=== PATIENT | male | born 1955 | race Caucasian/White ===

== ENCOUNTER 2017-11-26 19:55 | Emergency (ER) | payer OTHER ==
[~2017-11-26] VITALS: Ht 193 cm; Wt 108.6 kg
[~2017-11-26 19:55] MED LIST: ASPI325T PO; KRIL300C PO; PRAV20 PO; VITA10004 PO
[2017-11-26 20:16] VITALS: BP 176/96; PULSE 61; RESP 16; TEMP 99.1; O2SAT 97
[2017-11-26 20:55] VITALS: BP 176/96; PULSE 61; RESP 16; TEMP 99.1; O2SAT 97
[2017-11-26] MEDS ORDERED: ASPI-183 PO (21:09)
[2017-11-26] MEDS ORDERED: LISI40TA PO (21:09)
--- NOTE | 2017-11-26 21:09 | PD ---
HPI Chief Complaint: Musculoskeletal Complaint Time Seen by Provider: 20:56 Travel History International Travel<30 days: No Contact w/Intl Traveler<30days: No Traveled to known affect area: No History of Present Illness HPI Patient is a 62-year-old male presents emergency department with lower cervical neck pain or high thoracic pain in a bandlike distribution. Patient states he awoke this pain yesterday. Denies any weakness in upper or lower extremities incontinence, chest pain shortness of breath abdominal pain nausea or vomiting. He does have a secondary complaint of loss of the central vision of his right eye over the past week or so. Patient states finds it difficult to read but if he looks out of the peripheral of his vision he is able to correctly identify objects. He states he has an appointment with an eye doctor coming up soon but has not yet followed up. He states that he has a history of TIA in the past which was associated with a patent foramen ovale which was surgically closed. He states this was in 2013. Patient also is complaints of a right temporal headache which is been on and off for some time. He states symptoms are moderate, started yesterday morning, associated signs symptoms in context as above. Is accompanied by his who is concerned about possibility of a recurrent stroke or TIA. PFSH Past Medical History Hx Anticoagulant Therapy: Yes (ASA) Heart Rhythm Problems: No Cancer: No Cardiovascular Problems: Yes (HTN) High Cholesterol: Yes Chest Pain: No Congestive Heart Failure: No Cerebrovascular Accident: Yes (2012) Diminished Hearing: No Endocrine: No Genitourinary: No Hypertension: Yes Immune Disorder: No Inguinal Hernia: Yes Musculoskeletal: No Neurologic: Yes (TIA) Psychiatric: No Reproductive: No Respiratory: No Migraines: No Seizures: No Past Surgical History Abdominal Surgery: Yes (BILATERAL HERNIA REPAIR) Cardiac Surgery: No Ear Surgery: No Endocrine Surgery: No Eye Surgery: No Genitourinary Surgery: No Gynecologic Surgery: No Oral Surgery: No Thoracic Surgery: No Social History Alcohol Use: No Tobacco Use: No Substance Use: No Allergies-Medications (Allergen,Severity, Reaction): Coded Allergies: No Known Allergies (Unverified Adverse Reaction, Unknown, 11/26/17) Reported Meds & Prescriptions Reported Meds & Active Scripts Active Reported Lisinopril 40 Mg Tab 40 Mg PO DAILY Aspirin 325 Mg Tab 325 Mg PO DAILY Review of Systems Except as stated in HPI: all other systems reviewed are Neg Physical Exam Narrative GENERAL: Well-developed well-nourished no obvious distress peer SKIN: Focused skin assessment warm/dry. HEAD: Atraumatic. Normocephalic. EYES: Pupils equal and round. No scleral icterus. No injection or drainage. No papilledema. His peripheral visual cobb are intact when he is asked to identify when the light is shining in his eye, this is equal bilaterally. He has some difficulty identifying the center people's faces and reading writing on the wall from his right eye when his left eye is covered. Extract movements are intact. ENT: No nasal bleeding or discharge. Mucous membranes pink and moist. NECK: Trachea midline. No JVD. No carotid bruit CARDIOVASCULAR: Regular rate and rhythm. No murmur appreciated. RESPIRATORY: No accessory muscle use. Clear to auscultation. Breath sounds equal bilaterally. GASTROINTESTINAL: Abdomen soft, non-tender, nondistended. Hepatic and splenic margins not palpable. MUSCULOSKELETAL: No obvious deformities. No clubbing. No cyanosis. No edema. NEUROLOGICAL: Awake and alert. Other than outlined above in the eye section, cranial nerves II through XII grossly intact and nonfocal, 5 out of 5 strength in all 4 extremities. Ambulate with an even narrow-base gait, cerebellar testing negative. PSYCHIATRIC: Appropriate mood and affect; insight and judgment normal. Data Data Last Documented VS Vital Signs Date Time Temp Pulse Resp B/P (MAP) Pulse Ox O2 Delivery O2 Flow Rate FiO2 11/26/17 23:00 47 18 147/80 (102) 11/26/17 21:30 99 Room Air 11/26/17 20:55 99.1 Orders Orders Complete Blood Count With Diff (11/26/17 21:10) Comprehensive Metabolic Panel (11/26/17 21:10) Westergren Sedimentation Rate (11/26/17 21:10) Ct Brain W/O Iv Contrast(Rout) (11/26/17 21:10) Ecg Monitoring (11/26/17 21:10) Iv Access Insert/Monitor (11/26/17 21:10) Oximetry (11/26/17 21:10) Sodium Chloride 0.9% Flush (Ns Flush) (11/26/17 21:15) Acetaminophen (Tylenol) (11/26/17 21:45) Electrocardiogram (11/26/17 ) Ed Discharge Order (11/26/17 22:22) Labs Laboratory Tests Test 11/26/17 21:30 White Blood Count 6.1 TH/MM3 Red Blood Count 4.44 MIL/MM3 Hemoglobin 13.7 GM/DL Hematocrit 39.5 % Mean Corpuscular Volume 88.9 FL Mean Corpuscular Hemoglobin 30.8 PG Mean Corpuscular Hemoglobin Concent 34.7 % Red Cell Distribution Width 13.7 % Platelet Count 172 TH/MM3 Mean Platelet Volume 8.4 FL Neutrophils (%) (Auto) 67.6 % Lymphocytes (%) (Auto) 21.2 % Monocytes (%) (Auto) 8.4 % Eosinophils (%) (Auto) 2.1 % Basophils (%) (Auto) 0.7 % Neutrophils # (Auto) 4.2 TH/MM3 Lymphocytes # (Auto) 1.3 TH/MM3 Monocytes # (Auto) 0.5 TH/MM3 Eosinophils # (Auto) 0.1 TH/MM3 Basophils # (Auto) 0.0 TH/MM3 CBC Comment DIFF FINAL Differential Comment Erythrocyte Sedimentation Rate 1 mm/hr Blood Urea Nitrogen 14 MG/DL Creatinine 0.99 MG/DL Random Glucose 98 MG/DL Total Protein 7.3 GM/DL Albumin 4.1 GM/DL Calcium Level 8.4 MG/DL Alkaline Phosphatase 86 U/L Aspartate Amino Transf (AST/SGOT) 26 U/L Alanine Aminotransferase (ALT/SGPT) 30 U/L Total Bilirubin 0.5 MG/DL Sodium Level 140 MEQ/L Potassium Level 3.7 MEQ/L Chloride Level 109 MEQ/L Carbon Dioxide Level 24.0 MEQ/L Anion Gap 7 MEQ/L Estimat Glomerular Filtration Rate 77 ML/MIN [facility] Medical Decision Making Medical Screen Exam Complete: Yes Emergency Medical Condition: Yes Differential Diagnosis TIA seems unlikely, headache, temporal arteritis unlikely, macular degeneration , intracranial abnormality unlikely, musculoskeletal strain peer Narrative Course Patient room to the emergency department, after assessment I think the most likely scenario is that the patient is starting to develop macular degeneration as well as a cervical neck strain. There is no bony tenderness in this patient' s C-spine is cleared by Nexus criteria. Patient's vision is intact but his centralized vision is very limited, patient was not able to really be tested on the eye chart but states he could see the E. His contralateral eye had normal vision. A CT head was ordered and was negative for acute abnormality, ESR negative, basic labs are reassuring. Patient noted to be bradycardic in the emergency department EKG was performed which showed sinus bradycardia without any other abnormality. Patient was reassured, discussed need for follow-up with his primary care physician and his neurologist as well as his eye doctor and recommended earlier follow-up in the which she is currently scheduled for. He will call the eye doctor and try to arrange earlier follow-up. Discussed return to ED criteria. At this point he is stable for discharge per Diagnosis Primary Impression: Headache Additional Impression: Blurred vision, right eye Referrals: Trino Ruby MD Additional Instructions: Follow up with your eye doctor as scheduled. Follow up with your neurologist Dr. Ruby. Disposition: DISCHARGE HOME Condition: Stable Abelardo Pete MD November 26, 2017 21:09
[2017-11-26] MEDS ORDERED: SODIUM CHLORIDE 0.9% FLUSH 10 ML FLUSH IVF PRN (21:15)
[2017-11-26 21:20] VITALS: BP 166/93; PULSE 59; RESP 18; O2SAT 96
--- NOTE | 2017-11-26 21:23 | RADRPT ---
EXAM DATE: 11/26/2017 9:20 PM EDT AGE/SEX: 62 years / Male INDICATIONS: Cephalgia. CLINICAL DATA: This is the patient's initial encounter. Patient reports that signs and symptoms have been present for 1 day and indicates a pain score of 5/10. MEDICAL/SURGICAL HISTORY: Hypertension. None. RADIATION DOSE: 60.52 CTDI (mGy) COMPARISON: [facility] [place], CT BRAIN W/O CONTRAST, 12/26/2012. . TECHNIQUE: CT of the head without contrast. Using automated exposure control and adjustment of the mA and/or kV according to patient size, radiation dose was kept as low as reasonably achievable to ob tain optimal diagnostic quality images. FINDINGS: Cerebrum: Mild diffuse cerebral atrophy. The ventricles are normal for degree of atrophy. No evidenc e of midline shift, mass lesion, hemorrhage or acute infarction. No extraaxial fluid collections are seen. Posterior Fossa: The cerebellum and brainstem are intact. The 4th ventricle is midline. The cerebe llopontine angle is unremarkable. Extracranial: The visualized portion of the orbits is intact. Skull: The calvaria is intact. No evidence of skull fracture. CONCLUSION: 1. No acute intracranial abnormality. Electronically signed by: Diogo Barros MD 11/26/2017 9:22 PM EDT
[2017-11-26 21:30] VITALS: O2SAT 99
[2017-11-26] MEDS ORDERED: ACETAMINOPHEN 325 MG TAB PO ONE (21:45)
[2017-11-26 21:48] LABS: AUTOMATED NEUTROPHIL # 4.2 TH/MM3 (1.8-7.7); BASOPHIL % 0.7 % (0.0-2.0); EOSINOPHIL # 0.1 TH/MM3 (0-0.4); EOSINOPHIL % 2.1 % (0.0-4.0); HEMATOCRIT 39.5 % (39.0-51.0); HEMOGLOBIN 13.7 GM/DL (13.0-17.0); LYMPH % 21.2 % (9.0-44.0); LYMPHOCYTE # 1.3 TH/MM3 (1.0-4.8); MEAN CELL VOLUME 88.9 FL (80.0-100.0); MEAN CORPUSCULAR HEMOGLOBIN 30.8 PG (27.0-34.0); MEAN CORPUSCULAR HGB CONC 34.7 % (32.0-36.0); MEAN PLATELET VOLUME 8.4 FL (7.0-11.0); MONO % 8.4 % (0.0-8.0); MONOCYTE # 0.5 TH/MM3 (0-0.9); NEUT % 67.6 % (16.0-70.0); PLATELET COUNT 172 TH/MM3 (150-450); RED BLOOD COUNT 4.44 MIL/MM3 (4.50-5.90); RED CELL DISTRIBUTION WIDTH 13.7 % (11.6-17.2); WHITE BLOOD COUNT 6.1 TH/MM3 (4.0-11.0)
[2017-11-26 21:59] LABS: CHLORIDE 109 MEQ/L (98-107); SODIUM (NA) 140 MEQ/L (136-145)
[2017-11-26 22:03] LABS: ALBUMIN 4.1 GM/DL (3.4-5.0); BLOOD UREA NITROGEN 14 MG/DL (7-18); CALCIUM 8.4 MG/DL (8.5-10.1); GLUCOSE,RANDOM 98 MG/DL (74-106)
[2017-11-26 22:06] LABS: ALT (GPT) 30 U/L (12-78); AST (GOT) 26 U/L (15-37); CREATININE 0.99 MG/DL (0.60-1.30); GLOMERULAR FILTRATION RATE 77 ML/MIN (>89)
[2017-11-26 22:08] LABS: TOTAL BILIRUBIN ADULT 0.5 MG/DL (0.2-1.0); TOTAL PROTEIN 7.3 GM/DL (6.4-8.2)
[2017-11-26 22:09] LABS: ALKALINE PHOSPHATASE 86 U/L (45-117)
[2017-11-26 23:00] VITALS: BP 147/80
--- NOTE | 2017-11-28 08:35 | EKG ---
Date Performed: 11/26/2017 Time Performed: 22:13:49 PTAGE: 62 years EKG: SINUS BRADYCARDIA Nonspecific ST and T wave abnormalities BORDERLINE ECG PREVIOUS TRACING : 03/04/2013 10.58 DOCTOR: Rg uY Interpretating Date/Time 11/28/2017 08:34:47
== END 2017-11-26 23:00 | disposition home or self-care (01) ==
LOC: PHED 19:55
DX: R51 Headache (principal); H53.8 Other visual disturbances; I10 Essential (primary) hypertension; E78.00 Pure hypercholesterolemia, unspecified; R00.1 Bradycardia, unspecified; R94.31 Abnormal electrocardiogram [ECG] [EKG]; Z86.73 Personal history of transient ischemic attack (TIA), and cerebral infarction without residual deficits; Z79.82 Long term (current) use of aspirin; Z79.899 Other long term (current) drug therapy
CPT/HCPCS: 70450; 80053; 85025; 85652; 93005; 99284